=== PATIENT | female | born 2000 | race Caucasian/White ===

== ENCOUNTER 2020-01-26 16:04 | Emergency (ER) | payer MEDICAID ==
[~2020-01-26] VITALS: Ht 177.8 cm; Wt 87.3 kg
[2020-01-26 17:59] LABS: BASOPHILS # (AUTO) 0.1 X10'3 (0-0.2); BASOPHILS % (AUTO) 0.7 % (0-1); EOSINOPHILS # (AUTO) 0.2 X10'3 (0-0.9); EOSINOPHILS % (AUTO) 1.5 % (0-6); HEMOGLOBIN 13.8 g/dl (12.0-16.0); LYMPHOCYTES # (AUTO) 2.4 X10'3 (1.1-4.8); MEAN CORPUSCULAR HGB CONC 33.7 g/dL (33.0-36.5); MEAN CORPUSCULAR VOLUME 94.9 FL (78-98); MEAN PLATELET VOLUME 8.1 FL (7.4-10.4); MONOCYTES # (AUTO) 0.8 X10'3 (0-0.9); MONOCYTES % (AUTO) 5.2 % (2-12); NEUTROPHILS # (AUTO) 12.3 X10'3 (1.8-7.7); NEUTROPHILS % (AUTO) 77.6 % (42-75); PLATELET COUNT 325 X10'3 (140-440); RED BLOOD COUNT 4.32 X10'6 (4.20-5.60); WHITE BLOOD COUNT 15.9 X10'3 (4.5-11.0)
[2020-01-26 18:02] LABS: URINE HCG NEGATIVE (NEG)
[2020-01-26 18:13] LABS: CLARITY,URINE CLEAR (Clear); COLOR,URINE YELLOW (Yellow); GLUCOSE, URINE NEGATIVE (Neg); KETONES,URINE NEGATIVE (Neg); LEUKOCYTE ESTERASE ,URINE NEGATIVE (Neg); NITRITES, URINE NEGATIVE (Neg); OCCULT BLOOD,URINE NEGATIVE (Neg); PROTEIN,URINE NEGATIVE (Neg); UROBILINOGEN,URINE 0.2 E.U/dL (0.2-1.0)
[2020-01-26 18:16] LABS: ALANINE AMINOTRANSFERASE 23 U/L (12-78); ALBUMIN 4.5 G/DL (3.4-5.0); ALBUMIN/GLOBULIN RATIO 1.2 (1.1-1.5); ALKALINE PHOSPHATASE 69 IU/L (46-116); ANION GAP 10 (8-16); ASPARTATE AMINO TRANSFERASE 12 U/L (10-37); BILIRUBIN,TOTAL 0.4 MG/DL (0.1-1.0); BLOOD UREA NITROGEN 19 MG/DL (7-18); BUN/CREATININE RATIO 18.3 (6.6-38.0); CALCIUM 9.4 MG/DL (8.5-10.1); CHLORIDE 102 MMOL/L (99-107); CREATININE 1.04 MG/DL (0.40-0.90); GLUCOSE 85 MG/DL (70-104); POTASSIUM 4.5 MMOL/L (3.5-5.1); SODIUM 141 MMOL/L (135-145); TOTAL CARBON DIOXIDE 29.5 MMOL/L (24-32); TOTAL PROTEIN 8.4 G/DL (6.4-8.2); eGFR 67 ML/MIN
[2020-01-26 18:20] LABS: UA COLLECTION TYPE VOIDED
[2020-01-26 18:31] LABS: ACETAMINOPHEN < 2.0 UG/ML (10-30); ETHANOL < 0.010 GM/DL (0.0-0.010)
[2020-01-26 18:47] LABS: URINE AMPHETAMINE SCREEN NEGATIVE (Neg); URINE BARBITUATE SCREEN NEGATIVE (Neg); URINE BENZODIAZEPINES SCREEN POSITIVE (Neg); URINE CANNABINOID SCREEN POSITIVE (Neg); URINE COCAINE SCREEN NEGATIVE (Neg); URINE METHADONE SCREEN NEGATIVE (Neg); URINE OPIATE SCREEN NEGATIVE (Neg); URINE PHENCYCLIDINE SCREEN NEGATIVE (Neg)
[2020-01-26] MEDS ORDERED: EST1T PO (19:24)
[2020-01-26] MEDS ORDERED: SPIR100T5 PO (19:24)
[2020-01-26] MEDS ORDERED: LORazepam 1 MG tablet PO PRN (19:45)
--- NOTE | 2020-01-26 19:46 | NUR ---
PT CRYING AND HITTING HIS HEAD AGAINST THE BED RAIL. HE ALSO WAS SPIT PAPER BALLS ON THE GLASS SLIDING DOORS. PT INSTRUCTED TO CLEAN IT UP WITH TISSUE. PT AGREED AND APOLOGIZED. PT NOW IN BED. DR. GOMEZ ORDERED PO ATIVAN PRN FOR ANXIETY AND AGITATION. PT'S HOME MEDS SENT TO THE PHARMACY
[2020-01-26] MEDS: spironolactone 25 MG tablet PO SCH (20:07)
[2020-01-26] MEDS: estradiol 1mg tablet PO SCH (20:08)
--- NOTE | 2020-01-27 07:50 | NUR ---
SPOKE WITH PT'S MOTHER, GAVE UPDATES ON PT CONDITION, INFORMED HER WE ARE WAITING FOR PT TO BE EVALUATED BY MENTAL HEALTH. PT SLEEPING AT THIS TIME
[2020-01-27] MEDS: estradiol 1mg tablet PO SCH (08:35)
[2020-01-27] MEDS: spironolactone 25 MG tablet PO SCH (08:35)
--- NOTE | 2020-01-27 09:00 | NUR ---
PT'S MOTHER AT BESIDE
--- NOTE | 2020-01-27 12:19 | NUR ---
PT SLEEPING, EVEN RISE AND FALL OF CHEST, IN NO APPARENT DISTRESS, WILL CONTINUE TO MONITOR CLOSELY, SITTER OUTSIDE OF ROOM
[2020-01-27 16:19] VITALS: BP 119/72
== END 2020-01-27 16:24 ==
LOC: EDSEX 16:05 → ER 16:05
DX: F44.0 Dissociative amnesia (principal); F29 Unspecified psychosis not due to a substance or known physiological condition; R47.81 Slurred speech; F41.9 Anxiety disorder, unspecified; F32.9 Major depressive disorder, single episode, unspecified; F12.90 Cannabis use, unspecified, uncomplicated; F19.90 Other psychoactive substance use, unspecified, uncomplicated; Z79.899 Other long term (current) drug therapy
CPT/HCPCS: 36415; 80053; 80305; 80320; 80329; 81003; 81025; 84443; 85025; 99285

== ENCOUNTER 2020-02-21 22:50 | Emergency (ER) | payer MEDICAID ==
[~2020-02-21] VITALS: Ht 177.8 cm; Wt 90.9 kg
[~2020-02-21 22:50] MED LIST: EST1T PO; SPIR100T5 PO
[2020-02-21 23:11] LABS: BASOPHILS # (AUTO) 0.1 X10'3 (0-0.2); BASOPHILS % (AUTO) 0.5 % (0-1); EOSINOPHILS # (AUTO) 0.2 X10'3 (0-0.9); EOSINOPHILS % (AUTO) 1.1 % (0-6); HEMATOCRIT 37.5 % (35.0-45.0); HEMOGLOBIN 12.6 g/dl (12.0-16.0); LYMPHOCYTES # (AUTO) 2.1 X10'3 (1.1-4.8); LYMPHOCYTES % (AUTO) 10.8 % (21-51); MEAN CORPUSCULAR HEMOGLOBIN 31.2 PG (27.0-31.0); MEAN CORPUSCULAR HGB CONC 33.7 g/dL (33.0-36.5); MEAN CORPUSCULAR VOLUME 92.5 FL (78-98); MEAN PLATELET VOLUME 8.6 FL (7.4-10.4); MONOCYTES # (AUTO) 1.3 X10'3 (0-0.9); NEUTROPHILS # (AUTO) 15.3 X10'3 (1.8-7.7); NEUTROPHILS % (AUTO) 80.6 % (42-75); PLATELET COUNT 311 X10'3 (140-440); RED BLOOD COUNT 4.06 X10'6 (4.20-5.60); RED CELL DISTRIBUTION WIDTH 12.7 % (11.5-14.5)
[2020-02-21 23:24] LABS: ACETAMINOPHEN < 2.0 UG/ML (10-30); ALANINE AMINOTRANSFERASE 31 U/L (12-78); ALBUMIN/GLOBULIN RATIO 1.2 (1.1-1.5); ALKALINE PHOSPHATASE 65 IU/L (46-116); ANION GAP 13 (8-16); ASPARTATE AMINO TRANSFERASE 14 U/L (10-37); BILIRUBIN,TOTAL 0.2 MG/DL (0.1-1.0); BLOOD UREA NITROGEN 19 MG/DL (7-18); BUN/CREATININE RATIO 13.9 (6.6-38.0); CHLORIDE 104 MMOL/L (99-107); CREATININE 1.37 MG/DL (0.40-0.90); GLUCOSE 118 MG/DL (70-104); POTASSIUM 3.3 MMOL/L (3.5-5.1); SODIUM 139 MMOL/L (135-145); TOTAL CARBON DIOXIDE 22.1 MMOL/L (24-32); TOTAL PROTEIN 7.3 G/DL (6.4-8.2); eGFR 49 ML/MIN
[2020-02-21 23:28] LABS: ETHANOL < 0.010 GM/DL (0.0-0.010)
--- NOTE | 2020-02-21 23:31 | NUR ---
Spoke with mom who found pt. at approx. 2100 hours in the floor of her room doing "snow angels" and pulling out her hair. Mom last saw pt. normal at 2000 hours. Mother found crushed Adderall in baggie in pt's. room.
--- NOTE | 2020-02-21 23:31 | NUR ---
No urine with straight cath
[2020-02-22] MEDS ORDERED: normal saline 1000ML IV soln IVB ONE (00:10)
--- NOTE | 2020-02-22 07:30 | NUR ---
Patient transfered safely via guerney to room, patient asleep, arousable to tactile stimuli, calm and cooperative at this time, no signs of distress noted, patient within sight of staff at all times, all safety measures in place.
--- NOTE | 2020-02-22 09:47 | NUR ---
pt walked over from 16 to 20
--- NOTE | 2020-02-22 10:41 | NUR ---
Breaking primary RN, pt is in bed laying on her right side, awake, calm, no s/s of agitation observed
[2020-02-22 10:56] LABS: URINE HCG NEGATIVE (NEG)
[2020-02-22 10:58] LABS: CLARITY,URINE CLEAR (Clear); COLOR,URINE YELLOW (Yellow); GLUCOSE, URINE NEGATIVE (Neg); KETONES,URINE >=80 mg/dl (Neg); LEUKOCYTE ESTERASE ,URINE NEGATIVE (Neg); NITRITES, URINE NEGATIVE (Neg); OCCULT BLOOD,URINE TRACE-INTACT (Neg); PROTEIN,URINE NEGATIVE (Neg); UA COLLECTION TYPE CLN CATCH MIDSTREAM; UROBILINOGEN,URINE 0.2 E.U/dL (0.2-1.0)
[2020-02-22 11:05] LABS: BACTERIA,URINE NONE SEEN /HPF (Neg); HYALINE CASTS 0-3 /LPF (NEGATIVE); RBC,URINE 0-2 /HPF (0-2); SQUAMOUS EPITHELIAL CELL,UR FEW /LPF (FEW); WBC,URINE 0-4 /HPF (0-4)
[2020-02-22 11:35] LABS: URINE AMPHETAMINE SCREEN NEGATIVE (Neg); URINE BARBITUATE SCREEN NEGATIVE (Neg); URINE BENZODIAZEPINES SCREEN NEGATIVE (Neg); URINE CANNABINOID SCREEN POSITIVE (Neg); URINE COCAINE SCREEN NEGATIVE (Neg); URINE METHADONE SCREEN NEGATIVE (Neg); URINE OPIATE SCREEN NEGATIVE (Neg); URINE PHENCYCLIDINE SCREEN POSITIVE (Neg)
--- NOTE | 2020-02-22 12:00 | NUR ---
pt is resting
--- NOTE | 2020-02-22 13:15 | NUR ---
pt is resting
--- NOTE | 2020-02-22 13:39 | NUR ---
pt is on the phone with family, tearful in conversation
[2020-02-22 14:00] LABS: BASOPHILS # (AUTO) 0.1 X10'3 (0-0.2); BASOPHILS % (AUTO) 0.7 % (0-1); EOSINOPHILS # (AUTO) 0.7 X10'3 (0-0.9); EOSINOPHILS % (AUTO) 5.3 % (0-6); HEMATOCRIT 37.5 % (35.0-45.0); HEMOGLOBIN 12.5 g/dl (12.0-16.0); LYMPHOCYTES # (AUTO) 2.3 X10'3 (1.1-4.8); LYMPHOCYTES % (AUTO) 16.4 % (21-51); MEAN CORPUSCULAR HEMOGLOBIN 31.4 PG (27.0-31.0); MEAN CORPUSCULAR HGB CONC 33.4 g/dL (33.0-36.5); MEAN CORPUSCULAR VOLUME 93.8 FL (78-98); MEAN PLATELET VOLUME 8.5 FL (7.4-10.4); MONOCYTES # (AUTO) 1.1 X10'3 (0-0.9); MONOCYTES % (AUTO) 8.1 % (2-12); NEUTROPHILS # (AUTO) 9.6 X10'3 (1.8-7.7); NEUTROPHILS % (AUTO) 69.5 % (42-75); PLATELET COUNT 301 X10'3 (140-440); RED BLOOD COUNT 3.99 X10'6 (4.20-5.60); RED CELL DISTRIBUTION WIDTH 12.7 % (11.5-14.5); WHITE BLOOD COUNT 13.8 X10'3 (4.5-11.0)
--- NOTE | 2020-02-22 14:00 | NUR ---
pt is resting in bed.
--- NOTE | 2020-02-22 15:00 | NUR ---
pt is resting in her bed. no concerns at this time
--- NOTE | 2020-02-22 16:00 | NUR ---
there was unusual powder found in medication bottles. security given the "meds"
--- NOTE | 2020-02-22 17:00 | NUR ---
mental health is speaking with the patient
[2020-02-22] MEDS ORDERED: DEXT15CA33 PO (17:09)
[2020-02-22] MEDS ORDERED: SPIR100T5 PO (17:09)
[2020-02-22] MEDS ORDERED: CLON0.1T2 PO (17:09)
--- NOTE | 2020-02-22 18:20 | NUR ---
Josselyn Guzmán [phone] ([place]arson) [phone] (cell)
[2020-02-22] MEDS: spironolactone 25 MG tablet PO SCH (20:27)
[2020-02-22] MEDS: estradiol 1mg tablet PO SCH (20:30)
--- NOTE | 2020-02-22 20:35 | NUR ---
Patient asked if could refuse scheduled Clonidine, states it's "for sleep" and "it doesn't work". Systolic blood pressure was 109 so medication could not be given anyway.
[2020-02-22] MEDS ORDERED: cloNIDine 0.1 mg tablet PO SCH (21:00)
--- NOTE | 2020-02-22 21:24 | NUR ---
Relieving primary RNBarbara, for break. Pt appears to be sleeping, lying on her left side with blankets over her shouders. RR 14 and unlabored. Sitter and RN within view of Pt AAT.
--- NOTE | 2020-02-23 05:20 | NUR ---
Carmen ([facility]) also requested updated resulted labs. Lab results faxed.
--- NOTE | 2020-02-23 05:20 | NUR ---
Carmen from [facility] in [place] called and reviewed "exclusionary guidelines", stated will present case in "about an hour" and will let us know if accepted. Per Carmen, if accepted, will need TSH drawn prior to leaving.
[2020-02-23 05:57] VITALS: BP_DIAS 51
--- NOTE | 2020-02-23 06:30 | NUR ---
pt is sleeping. received from sharmin newby
--- NOTE | 2020-02-23 07:30 | NUR ---
pt is sleeping
[2020-02-23] MEDS ORDERED: dextroamphetam/amphetam ER cap 15 MG CAP.ER.24H PO SCH (08:00)
--- NOTE | 2020-02-23 08:30 | NUR ---
pt is awake and eating breakfast
[2020-02-23] MEDS ORDERED: DEXTROAMP AMPHET PO SCH (09:03)
[2020-02-23 09:17] VITALS: BP_SYST 121
[2020-02-23] MEDS: spironolactone 25 MG tablet PO SCH (09:17)
[2020-02-23] MEDS: estradiol 1mg tablet PO SCH (09:18)
--- NOTE | 2020-02-23 09:29 | NUR ---
pt is awake. sitting on her bed, no issues
--- NOTE | 2020-02-23 10:30 | NUR ---
pt is sleeping
--- NOTE | 2020-02-23 11:30 | NUR ---
pt is resting
--- NOTE | 2020-02-23 12:27 | NUR ---
pt was accepted to [facility] at [phone]
== END 2020-02-23 12:42 ==
LOC: ER 22:51
DX: T46.5X1A Poisoning by other antihypertensive drugs, accidental (unintentional), initial encounter (principal); F41.9 Anxiety disorder, unspecified; F31.9 Bipolar disorder, unspecified; F17.200 Nicotine dependence, unspecified, uncomplicated; Z79.899 Other long term (current) drug therapy; Y92.89 Other specified places as the place of occurrence of the external cause
CPT/HCPCS: 36415; 71045; 80053; 80305; 80320; 80329; 81001; 81025; 85025; 93005; 99285; J7030

== ENCOUNTER 2022-06-26 22:53 | Emergency (ER) | payer MEDICAID ==
[~2022-06-26] VITALS: Ht 185.4 cm; Wt 94.8 kg
[~2022-06-26 22:53] MED LIST changes: +CLON0.1T2 PO; +DEXT15CA33 PO
[2022-06-27] MEDS ORDERED: AMOX-117 PO (00:34)
== END 2022-06-27 00:57 | disposition home or self-care (01) ==
LOC: ER 22:54
DX: K08.89 Other specified disorders of teeth and supporting structures (principal); F41.9 Anxiety disorder, unspecified; F31.9 Bipolar disorder, unspecified; F12.90 Cannabis use, unspecified, uncomplicated; F19.90 Other psychoactive substance use, unspecified, uncomplicated; Z79.2 Long term (current) use of antibiotics; Z79.899 Other long term (current) drug therapy
CPT/HCPCS: 99283